=== PATIENT | female | born 1955 | race Caucasian/White ===

== ENCOUNTER 2019-05-28 14:52 | Observation (INO) ==
[2019-05-28 15:21] LABS: Bilirubin,Urine Negative (Negative); Blood,Urine Trace (Negative); Clarity,Urine Clear (Clear); Color,Urine Yellow (Yellow); Glucose,Urine (UA) Normal (Normal); Ketones,Urine 15 mg/dL (Negative); Leukocyte Esterase,Urine Small (Negative); Nitrite,Urine Negative (Negative); Protein,Urine Trace mg/dL (Neg-Trace); Specific Gravity,Urine 1.017 (1.010-1.025); Urobilinogen,Urine Normal (Normal)
[2019-05-28 15:23] LABS: Bacteria,Urine None Seen per hpf (None-Few); Hyaline Casts,Urine None Seen per lpf (None-Few); RBC,Urine 0-3 per hpf (0-3); Squamous Epithelial Cell,Urine Many per lpf (None-Few); WBC,Urine 15-30 per hpf (0-3)
[2019-05-28 15:34] LABS: Amphetamine Screen,Urine Negative ng/mL (Cutoff=1000); Barbiturate Screen,Urine Negative ng/mL (Cutoff=200); Benzodiazepines Screen,Urine Positive ng/mL (Cutoff=200); Cannabinoid Screen,Urine Negative ng/mL (Cutoff = 50); Cocaine Screen,Urine Negative ng/mL (Cutoff= 300); Opiate Screen,Urine Negative ng/mL (Cutoff=300); Phencyclidine Screen,Urine Negative ng/mL (Cutoff=25)
[2019-05-28 15:57] LABS: Basophils % 0.3 %; Eosinophils % 0.2 %; Hematocrit 44.7 % (35.3-44.9); Hemoglobin 14.9 g/dL (11.5-15.4); Immature Granulocytes % 0.2 % (0-4); Lymphocytes # 0.9 K/mcL (0.6-4.6); Lymphocytes % 9.9 %; Mean Corpuscular HGB Conc 33.3 g/dL (31.6-35.5); Mean Corpuscular Volume 90.1 fL (83.0-100.0); Mean Platelet Volume 9.9 fL (9.4-12.4); Monocytes # 0.5 K/mcL (0.0-1.3); Monocytes % 5.8 %; Neutrophils # 7.3 K/mcL (1.6-8.9); Platelet Count 278 K/mcL (140-400); Red Blood Count 4.96 M/mcL (3.82-4.97); Red Cell Distribution Width 12.7 % (11.5-14.5); Segmented Neutrophils % 83.6 %; White Blood Count 8.8 K/mcL (4.3-11.1)
[2019-05-28 16:13] LABS: Acetaminophen < 10 mcg/mL (10-20); BUN/Creatinine Ratio 8 (6-26); Blood Urea Nitrogen 6 mg/dL (8-23); Calcium 9.4 mg/dL (8.6-10.3); Carbon Dioxide 22 mEq/L (23-29); Chloride 109 mEq/L (98-107); Ethanol < 10 mg/dL (Less than 10); Glucose 110 mg/dL (70-105); Osmolality,Calculated 292 (280-300); Potassium 3.3 mEq/L (3.5-5.1); Salicylate < 2.5 mg/dL (15.0-30.0); Sodium 142 mEq/L (136-145); eGFR For African Americans > 60 (> 60); eGFR For Non-African Americans > 60 (> 60)
[2019-05-28] MEDS ORDERED: GI Cocktail 40 ML EACH PO ONE (18:37)
[2019-05-28] MEDS ORDERED: hydrOXYzine pamoate 25 MG CAPSULE PO ONE (18:37)
[2019-05-28] MEDS ORDERED: MOM Conc 10 ML UD.LIQ PO PRN (19:40)
[2019-05-28] MEDS ORDERED: Mag Hydrox/Al Hydrox/Simeth 30 ML UDC PO PRN (19:40)
[2019-05-28] MEDS ORDERED: traZODone 50 MG TABLET PO PRN (19:40)
[2019-05-28] MEDS ORDERED: Haloperidol Lactate 5 MG/ML VIAL IM PRN (19:40)
[2019-05-28] MEDS ORDERED: *HR* LORazepam 2 MG/ML VIAL IM PRN (19:40)
[2019-05-28] MEDS ORDERED: *HR* LORazepam 1 MG TABLET PO PRN (19:40)
[2019-05-28] MEDS ORDERED: hydrOXYzine pamoate 25 MG CAPSULE PO PRN (20:01)
[2019-05-29] MEDS: Acetaminophen 325 MG TABLET PO PRN ×2 (02:02→09:32)
[2019-05-29 09:47] VITALS: BP 157/80
[2019-05-29] MEDS ORDERED: Famotidine 20 MG TABLET PO SCH (10:15)
== END 2019-05-29 11:15 | disposition home or self-care (01) ==
LOC: EMEROOARM 14:52 → 1ANU 19:00 → INTOOBSV 19:34
PROVIDERS: ADMIT Psychiatry & Neurology Psychiatry; ATTEND Psychiatry & Neurology Psychiatry